=== PATIENT | male | born 1950 | race Caucasian/White ===

== ENCOUNTER 2018-06-29 08:58 | Emergency (ER) | payer MEDICARE, BC ==
[~2018-06-29] VITALS: Ht 190.5 cm; Wt 151.0 kg
[~2018-06-29 08:58] MED LIST: APIX5TAB3 PO; CARV-50 PO; FLEC50TA PO
[2018-06-29] MEDS ORDERED: furosemide 10 MG/1 ML 10ml inj IV ONE (10:05)
[2018-06-29 10:14] LABS: BASOPHILS % (AUTO) 0.1 % (0-1); EOSINOPHILS # (AUTO) 0.1 X10'3 (0-0.9); EOSINOPHILS % (AUTO) 0.8 % (0-6); LYMPHOCYTES # (AUTO) 0.8 X10'3 (1.1-4.8); LYMPHOCYTES % (AUTO) 6.9 % (21-51); MEAN CORPUSCULAR HEMOGLOBIN 30.4 PG (27.0-31.0); MEAN CORPUSCULAR HGB CONC 32.3 % (33.0-36.5); MEAN PLATELET VOLUME 9.3 FL (7.4-10.4); MONOCYTES # (AUTO) 0.6 X10'3 (0-0.9); MONOCYTES % (AUTO) 5.3 % (2-12); NEUTROPHILS # (AUTO) 9.8 X10'3 (1.8-7.7); NEUTROPHILS % (AUTO) 86.9 % (42-75); PLATELET COUNT 171 X10'3 (140-440); RED BLOOD COUNT 6.79 X10'6 (4.70-6.10); RED CELL DISTRIBUTION WIDTH 16.8 % (11.5-14.5); WHITE BLOOD COUNT 11.3 X10'3 (4.5-11.0)
[2018-06-29 10:22] LABS: HEMATOCRIT 63.9 % (42.0-52.0); HEMOGLOBIN 20.6 g/dl (14.0-17.9)
[2018-06-29 10:41] LABS: ALANINE AMINOTRANSFERASE 54 U/L (12-78); ALBUMIN 2.9 G/DL (3.4-5.0); ALBUMIN/GLOBULIN RATIO 0.8 (1.1-1.5); ALKALINE PHOSPHATASE 80 IU/L (46-116); ANION GAP 10 (8-16); ASPARTATE AMINO TRANSFERASE 24 U/L (10-37); BILIRUBIN,TOTAL 0.9 MG/DL (0.1-1.0); BLOOD UREA NITROGEN 23 MG/DL (7-18); BUN/CREATININE RATIO 12.4 (5.4-32.0); CALCIUM 8.7 MG/DL (8.5-10.1); CHLORIDE 107 MMOL/L (99-107); CREATININE 1.85 MG/DL (0.60-1.10); GLUCOSE 106 MG/DL (70-104); POTASSIUM 4.5 MMOL/L (3.5-5.1); SODIUM 141 MMOL/L (135-145); TOTAL CARBON DIOXIDE 23.7 MMOL/L (24-32); TOTAL PROTEIN 6.7 G/DL (6.4-8.2); eGFR 37 ML/MIN
[2018-06-29] MEDS ORDERED: FURO-150 PO (11:47)
[2018-06-29 11:58] VITALS: BP 178/101
== END 2018-06-29 12:01 | disposition home or self-care (01) ==
LOC: ER 08:59
DX: I11.0 Hypertensive heart disease with heart failure (principal); I50.33 Acute on chronic diastolic (congestive) heart failure; D75.1 Secondary polycythemia; I48.91 Unspecified atrial fibrillation; G89.29 Other chronic pain; I87.8 Other specified disorders of veins; Z90.49 Acquired absence of other specified parts of digestive tract; Z98.890 Other specified postprocedural states; Z79.01 Long term (current) use of anticoagulants; Z79.899 Other long term (current) drug therapy
CPT/HCPCS: 36415; 71046; 80053; 83605; 83880; 85025; 87040; 93005; 96374; 99285; J1940

== ENCOUNTER 2018-12-25 06:51 | Day surgery (SDC) | payer MEDICARE, BC ==
[2018-12-24 11:50] LABS: BASOPHILS % (AUTO) 0.5 % (0-1); EOSINOPHILS # (AUTO) 0.1 X10'3 (0-0.9); EOSINOPHILS % (AUTO) 1.4 % (0-6); HEMATOCRIT 48.9 % (42.0-52.0); HEMOGLOBIN 17.1 g/dl (14.0-17.9); LYMPHOCYTES # (AUTO) 1.4 X10'3 (1.1-4.8); LYMPHOCYTES % (AUTO) 18.1 % (21-51); MEAN CORPUSCULAR HEMOGLOBIN 33.5 PG (27.0-31.0); MEAN CORPUSCULAR VOLUME 95.8 FL (78-98); MEAN PLATELET VOLUME 9.1 FL (7.4-10.4); MONOCYTES # (AUTO) 0.7 X10'3 (0-0.9); MONOCYTES % (AUTO) 9.6 % (2-12); NEUTROPHILS # (AUTO) 5.4 X10'3 (1.8-7.7); NEUTROPHILS % (AUTO) 70.4 % (42-75); PLATELET COUNT 233 X10'3 (140-440); RED BLOOD COUNT 5.11 X10'6 (4.70-6.10); RED CELL DISTRIBUTION WIDTH 14.1 % (11.5-14.5); WHITE BLOOD COUNT 7.7 X10'3 (4.5-11.0)
[2018-12-24 11:54] LABS: ALBUMIN 3.3 G/DL (3.4-5.0); ANION GAP 8 (8-16); BLOOD UREA NITROGEN 25 MG/DL (7-18); BUN/CREATININE RATIO 15.5 (5.4-32.0); CALCIUM 9.1 MG/DL (8.5-10.1); CHLORIDE 108 MMOL/L (99-107); CREATININE 1.61 MG/DL (0.60-1.10); GLUCOSE 100 MG/DL (70-104); POTASSIUM 4.6 MMOL/L (3.5-5.1); SODIUM 140 MMOL/L (135-145); TOTAL CARBON DIOXIDE 24.5 MMOL/L (24-32); eGFR 43 ML/MIN
[~2018-12-25] VITALS: Ht 190.5 cm; Wt 152.3 kg
[2018-12-25] VITALS (7 sets, daily range): BP systolic 126–148; BP diastolic 75–101
[~2018-12-25 06:51] MED LIST changes: +FURO-150 PO
[2018-12-25] MEDS ORDERED: normal saline 1000ml 1,000 ML IV SCH (07:05)
[2018-12-25] MEDS ORDERED: morphine 10mg/ml inj. IV PRN (07:10)
[2018-12-25] MEDS ORDERED: MIDAZolam 1mg/ml 10ml vial IV PRN (07:15)
[2018-12-25] MEDS ORDERED: ATOR40TA PO (07:40)
== END 2018-12-25 12:45 | disposition home or self-care (01) ==
LOC: SSTAY O 06:51 → EDSTATUS 09:00 → SSTAY O 12:45
PROVIDERS: ATTEND Internal Medicine Cardiovascular Disease
DX: I08.0 Rheumatic disorders of both mitral and aortic valves (principal); I70.0 Atherosclerosis of aorta; I48.91 Unspecified atrial fibrillation; G47.33 Obstructive sleep apnea (adult) (pediatric); I12.9 Hypertensive chronic kidney disease with stage 1 through stage 4 chronic kidney disease, or unspecified chronic kidney disease; N18.9 Chronic kidney disease, unspecified; E66.01 Morbid (severe) obesity due to excess calories; Z86.73 Personal history of transient ischemic attack (TIA), and cerebral infarction without residual deficits; M19.90 Unspecified osteoarthritis, unspecified site; Z98.890 Other specified postprocedural states; Z90.5 Acquired absence of kidney; Z79.899 Other long term (current) drug therapy; I82.509 Chronic embolism and thrombosis of unspecified deep veins of unspecified lower extremity
CPT/HCPCS: 36415; 80048; 85025; 85610; 93312; J2250; J2270; 93325; J7030

== ENCOUNTER 2019-02-01 15:55 | Emergency (ER) | payer MEDICARE, BC ==
[~2019-02-01] VITALS: Ht 190.5 cm; Wt 140.9 kg
[~2019-02-01 15:55] MED LIST changes: +ATOR40TA PO; -FURO-150 PO
[2019-02-01 16:04] VITALS: BP 124/73
[2019-02-01] MEDS ORDERED: FLUT16SP2 BOTHNARES ×2 (17:37→17:42)
== END 2019-02-01 18:00 | disposition home or self-care (01) ==
LOC: ER 15:56
DX: J30.9 Allergic rhinitis, unspecified (principal); I11.0 Hypertensive heart disease with heart failure; I50.9 Heart failure, unspecified; I48.91 Unspecified atrial fibrillation; G89.29 Other chronic pain; Z90.49 Acquired absence of other specified parts of digestive tract
CPT/HCPCS: 99282

== ENCOUNTER 2020-03-18 10:50 | Outpatient (CLI) | payer MEDICARE, BC ==
[~2020-03-18] VITALS: Ht 190.5 cm; Wt 149.7 kg
[~2020-03-18 10:50] MED LIST changes: +FLUT16SP2 BOTHNARES
[2020-03-18 11:57] LABS: BASOPHILS # (AUTO) 0.1 X10'3 (0-0.2); BASOPHILS % (AUTO) 0.8 % (0-1); EOSINOPHILS # (AUTO) 0.1 X10'3 (0-0.9); EOSINOPHILS % (AUTO) 1.4 % (0-6); LYMPHOCYTES % (AUTO) 12.1 % (21-51); MEAN CORPUSCULAR HEMOGLOBIN 31.4 PG (27.0-31.0); MEAN CORPUSCULAR HGB CONC 33.6 g/dL (33.0-36.5); MEAN CORPUSCULAR VOLUME 93.4 FL (78-98); MEAN PLATELET VOLUME 9.1 FL (7.4-10.4); MONOCYTES # (AUTO) 0.6 X10'3 (0-0.9); MONOCYTES % (AUTO) 7.6 % (2-12); NEUTROPHILS # (AUTO) 6.6 X10'3 (1.8-7.7); NEUTROPHILS % (AUTO) 78.1 % (42-75); PRE OP HEMATOCRIT 50.2 % (42.0-52.0); PRE OP HEMOGLOBIN 16.9 g/dL (14.0-17.9); PRE OP PLATELET COUNT 224 X10'3 (140-440); RED BLOOD COUNT 5.37 X10'6 (4.70-6.10); RED CELL DISTRIBUTION WIDTH 14.6 % (11.5-14.5)
[2020-03-18 12:11] LABS: PRE OP PROTIME 10.2 SECONDS (9.0-12.0)
[2020-03-18 12:12] LABS: ALBUMIN 3.6 G/DL (3.4-5.0); ALBUMIN/GLOBULIN RATIO 0.9 (1.1-1.5); ALKALINE PHOSPHATASE 101 IU/L (46-116); BLOOD UREA NITROGEN 25 MG/DL (7-18); BUN/CREATININE RATIO 14.8 (5.4-32.0); CALCIUM 8.6 MG/DL (8.5-10.1); CHLORIDE 110 MMOL/L (99-107); CREATININE 1.69 MG/DL (0.60-1.10); PRE OP ALT 49 U/L (30-65); PRE OP ANION GAP 8 (8-16); PRE OP AST 25 U/L (10-37); PRE OP BILIRUB, TOTAL 0.4 MG/DL (0.0-1.0); PRE OP GLUCOSE 100 MG/DL (70-104); PRE OP SODIUM 140 MMOL/L (135-145); TOTAL CARBON DIOXIDE 22.5 MMOL/L (24-32); TOTAL PROTEIN 7.5 G/DL (6.4-8.2); eGFR 41 ML/MIN
[2020-03-18 12:13] LABS: PRE OP POTASSIUM 4.7 MMOL/L (3.4-5.1)
[2020-03-18 13:46] LABS: PLATELET FUNCTION (ADP) 227 SECONDS (63-104)
[2020-03-22 17:42] LABS: PLATELET FUNCTION (ADP) 226 SECONDS (63-104)
[2020-03-23] MEDS ORDERED: ringers solution, lacted 1,000 ML IV SCH (05:00)
[2020-03-23] MEDS ORDERED: oxymetazoline 15 ML nasal spray NS PRN (05:30)
[2020-03-23] MEDS ORDERED: DOCUMENT DATE & TIME OF BETA-BLOCKER PO ONE (05:30)
[2020-03-23] MEDS ORDERED: famotidine 20mg tablet PO ONE (05:30)
[2020-03-23] MEDS ORDERED: methylPREDNISolone acetate 80mg/ml inj**IM only ONE (06:57)
[2020-03-23] MEDS ORDERED: cocaine 4% topical solution 4ml bottle ONE (06:57)
[2020-03-23] MEDS ORDERED: mupirocin 2% ointment 22GM ONE (06:57)
[2020-03-23] MEDS ORDERED: LIDOcaine 1% W/epiNEPHrine 1:100,000 20ml vial ONE (06:57)
[2020-03-23] MEDS ORDERED: oxymetazoline 15 ML nasal spray NS ONE (06:58)
[2020-03-23] MEDS ORDERED: BUPIVAcaine 0.5% W/EPI /PF 30ml vial ONE (06:58)
[2020-03-23] MEDS ORDERED: cefTAZidime 1gm inj ONE (06:58)
== END 2020-03-18 23:59 | disposition home or self-care (01) ==
LOC: PRE-OP 10:50 → EDSTATUS 03-23 08:00
PROVIDERS: ATTEND Otolaryngology
DX: Z01.818 Encounter for other preprocedural examination (principal); Z11.59 Encounter for screening for other viral diseases; J32.0 Chronic maxillary sinusitis; J34.2 Deviated nasal septum; I48.91 Unspecified atrial fibrillation
CPT/HCPCS: 36415; 80053; 85025; 85576; 85610; 85730; C9803; U0003; J7120

== ENCOUNTER 2020-12-07 08:16 | Day surgery (SDC) | payer MEDICARE, BC ==
[2020-11-30 11:23] LABS: BASOPHILS # (AUTO) 0.1 X10'3 (0-0.2); BASOPHILS % (AUTO) 0.8 % (0-1); EOSINOPHILS # (AUTO) 0.2 X10'3 (0-0.9); EOSINOPHILS % (AUTO) 3.7 % (0-6); LYMPHOCYTES % (AUTO) 15.8 % (21-51); MEAN CORPUSCULAR HEMOGLOBIN 31.4 PG (27.0-31.0); MEAN CORPUSCULAR HGB CONC 34.3 g/dL (33.0-36.5); MEAN CORPUSCULAR VOLUME 91.5 FL (78-98); MEAN PLATELET VOLUME 8.7 FL (7.4-10.4); MONOCYTES # (AUTO) 0.6 X10'3 (0-0.9); MONOCYTES % (AUTO) 8.9 % (2-12); NEUTROPHILS # (AUTO) 4.4 X10'3 (1.8-7.7); NEUTROPHILS % (AUTO) 70.8 % (42-75); PRE OP HEMATOCRIT 48.8 % (42.0-52.0); PRE OP HEMOGLOBIN 16.7 g/dL (14.0-17.9); PRE OP PLATELET COUNT 220 X10'3 (140-440); RED BLOOD COUNT 5.33 X10'6 (4.70-6.10); RED CELL DISTRIBUTION WIDTH 14.9 % (11.5-14.5)
[2020-11-30 11:32] LABS: PRE OP PROTIME 10.1 SECONDS (9.0-12.0)
[2020-11-30 11:45] LABS: ALKALINE PHOSPHATASE 93 IU/L (46-116); BLOOD UREA NITROGEN 16 MG/DL (7-18); BUN/CREATININE RATIO 12.3 (5.4-32.0); CALCIUM 9.1 MG/DL (8.5-10.1); CHLORIDE 109 MMOL/L (99-107); PRE OP ALT 40 U/L (30-65); PRE OP ANION GAP 9 (8-16); PRE OP AST 20 U/L (10-37); PRE OP BILIRUB, TOTAL 0.4 MG/DL (0.0-1.0); PRE OP GLUCOSE 111 MG/DL (70-104); PRE OP POTASSIUM 4.4 MMOL/L (3.4-5.1); PRE OP SODIUM 142 MMOL/L (135-145); TOTAL CARBON DIOXIDE 24.1 MMOL/L (24-32); TOTAL PROTEIN 7.3 G/DL (6.4-8.2); eGFR 55 ML/MIN
[2020-11-30 12:02] LABS: ALBUMIN 3.4 G/DL (3.4-5.0); ALBUMIN/GLOBULIN RATIO 0.9 (1.1-1.5)
[~2020-12-07] VITALS: Ht 190.5 cm; Wt 152.8 kg
[~2020-12-07 08:16] MED LIST changes: -ATOR40TA PO; +DOCUMENT DATE & TIME OF BETA-BLOCKER PO ONE; -FLEC50TA PO; -FLUT16SP2 BOTHNARES; +LIDOcaine 1% W/epiNEPHrine 1:100,000 20ml vial ONE; +LIDOcaine 1% W/epiNEPHrine 1:200,000 10ml vial ONE; +cefTAZidime 1gm inj ONE; +cocaine 4% topical solution 4ml bottle ONE; +famotidine 20mg tablet PO ONE; +mupirocin 2% ointment 22GM ONE; +oxymetazoline 15 ML nasal spray NS ONE; +oxymetazoline 15 ML nasal spray NS PRN; +ringers solution, lacted 1,000 ML IV SCH
[2020-12-07 08:30] VITALS: BP_SYST 174; BP_DIAS 105; BP_DIAS 113
--- NOTE | 2020-12-07 09:15 | NUR ---
BP ELEVATED. NOTIFIED DR. ALCARAZ WHOM I HEARD RELAY MSG TO DR. MITTAL. BOTH ARE OK TO GO AHEAD WITH SURGERY Addendum: 12/07/20 at 1017 by Dayana Blum RN Amended: Links added.
[2020-12-07 09:49] LABS: PARTIAL THROMBOPLASTIN TIME 30 SECONDS (22-32)
--- NOTE | 2020-12-07 10:50 | NUR ---
REPEAT BP PRIOR TO GOING INTO THE OR = 188/97. DR MITTAL AT BEDSIDE SX CX DUE TO HTN AND HIGH RISK FOR BLEEDING POST-OP. DR. TORRES WANTS PT TO GO TO THE ED FOR EVALUATION OF BP, PT AGREEABLE. SPOKE WITH ED CHARGE NURSE REPORT GIVEN. DUE LACK OF BED AVAILABILITY IN THE ED AT THIS MOMENT PT TAKEN TO ED LOBBY AND CHECKED IN FOR TRIAGE. PT NOTIFYING HIS OF PLAN. OR NOTIFIED OF CX. Addendum: 12/07/20 at 1105 by Dayana Blum RN 20G IV TO RT HAND LEFT IN PLACE FOR USE IN THE ED
== END 2020-12-07 10:50 | disposition short-term general hospital (02) ==
LOC: PAS 08:16
PROVIDERS: ATTEND Otolaryngology
DX: J34.2 Deviated nasal septum (principal); Z53.8 Procedure and treatment not carried out for other reasons; I10 Essential (primary) hypertension; J34.3 Hypertrophy of nasal turbinates; J34.89 Other specified disorders of nose and nasal sinuses; Z20.822 Contact with and (suspected) exposure to COVID-19; Z79.899 Other long term (current) drug therapy; Z79.01 Long term (current) use of anticoagulants
CPT/HCPCS: 36415; 80053; 82948; 85025; 85576; 85610; 85730; 87426; J0713; U0003; J7120

== ENCOUNTER 2020-12-07 10:52 | Emergency (ER) | payer MEDICARE, BC ==
[~2020-12-07] VITALS: Ht 190.5 cm; Wt 154.0 kg
[~2020-12-07 10:52] MED LIST changes: -DOCUMENT DATE & TIME OF BETA-BLOCKER PO ONE; -LIDOcaine 1% W/epiNEPHrine 1:100,000 20ml vial ONE; -LIDOcaine 1% W/epiNEPHrine 1:200,000 10ml vial ONE; -cefTAZidime 1gm inj ONE; -cocaine 4% topical solution 4ml bottle ONE; -famotidine 20mg tablet PO ONE; -mupirocin 2% ointment 22GM ONE; -oxymetazoline 15 ML nasal spray NS ONE; -oxymetazoline 15 ML nasal spray NS PRN; -ringers solution, lacted 1,000 ML IV SCH
[2020-12-07 12:00] LABS: BASOPHILS # (AUTO) 0.1 X10'3 (0-0.2); EOSINOPHILS # (AUTO) 0.2 X10'3 (0-0.9); EOSINOPHILS % (AUTO) 2.9 % (0-6); HEMATOCRIT 48.6 % (42.0-52.0); HEMOGLOBIN 16.3 g/dl (14.0-17.9); LYMPHOCYTES # (AUTO) 1.1 X10'3 (1.1-4.8); LYMPHOCYTES % (AUTO) 18.4 % (21-51); MEAN CORPUSCULAR HEMOGLOBIN 31.2 PG (27.0-31.0); MEAN CORPUSCULAR HGB CONC 33.7 g/dL (33.0-36.5); MEAN CORPUSCULAR VOLUME 92.7 FL (78-98); MEAN PLATELET VOLUME 8.1 FL (7.4-10.4); MONOCYTES # (AUTO) 0.5 X10'3 (0-0.9); MONOCYTES % (AUTO) 9.2 % (2-12); NEUTROPHILS # (AUTO) 4.1 X10'3 (1.8-7.7); NEUTROPHILS % (AUTO) 68.5 % (42-75); PLATELET COUNT 238 X10'3 (140-440); RED BLOOD COUNT 5.24 X10'6 (4.70-6.10); RED CELL DISTRIBUTION WIDTH 14.9 % (11.5-14.5)
[2020-12-07 12:15] LABS: ALANINE AMINOTRANSFERASE 42 U/L (12-78); ALBUMIN 3.3 G/DL (3.4-5.0); ALBUMIN/GLOBULIN RATIO 0.9 (1.1-1.5); ALKALINE PHOSPHATASE 84 IU/L (46-116); ANION GAP 12 (8-16); ASPARTATE AMINO TRANSFERASE 25 U/L (10-37); BILIRUBIN,TOTAL 0.5 MG/DL (0.1-1.0); BLOOD UREA NITROGEN 19 MG/DL (7-18); BUN/CREATININE RATIO 13.8 (5.4-32.0); CALCIUM 8.9 MG/DL (8.5-10.1); CHLORIDE 106 MMOL/L (99-107); CREATININE 1.38 MG/DL (0.60-1.10); GLUCOSE 111 MG/DL (70-104); POTASSIUM 4.4 MMOL/L (3.5-5.1); SODIUM 141 MMOL/L (135-145); TOTAL CARBON DIOXIDE 23.5 MMOL/L (24-32); TOTAL PROTEIN 7.1 G/DL (6.4-8.2); eGFR 51 ML/MIN
[2020-12-07 12:21] LABS: MAGNESIUM 1.9 MG/DL (1.5-2.4)
[2020-12-07] MEDS ORDERED: morphine 4 MG/ML inj SYRINge IV ONE (12:40)
[2020-12-07] MEDS ORDERED: ondansetron/PF 4mg/2ml inj IV ONE (12:40)
[2020-12-07] MEDS ORDERED: hydrALAZINE 20mg/ml inj. IV ONE (12:40)
[2020-12-07 13:49] VITALS: BP 150/86
== END 2020-12-07 14:16 | disposition home or self-care (01) ==
LOC: ER 10:53
DX: I13.0 Hypertensive heart and chronic kidney disease with heart failure and stage 1 through stage 4 chronic kidney disease, or unspecified chronic kidney disease (principal); Z20.822 Contact with and (suspected) exposure to COVID-19; N18.9 Chronic kidney disease, unspecified; M25.552 Pain in left hip; I48.91 Unspecified atrial fibrillation; G89.29 Other chronic pain; Z90.89 Acquired absence of other organs; Z98.890 Other specified postprocedural states; Z90.49 Acquired absence of other specified parts of digestive tract; Z91.040 Latex allergy status; Z79.899 Other long term (current) drug therapy
CPT/HCPCS: 36415; 71045; 80053; 82948; 83735; 83880; 84484; 85025; 85610; 85730; 87426; 93005; 96374; 99285; J0360; J0713; J7120

== ENCOUNTER 2022-02-07 06:15 | Day surgery (SDC) | payer MEDICARE, BC ==
[2022-02-07] VITALS (12 sets, daily range): BP systolic 105–146; BP diastolic 57–91
[~2022-02-07] VITALS: Ht 188 cm; Wt 147.2 kg
[2022-02-07] MEDS ORDERED: morphine 10mg/ml inj. IV ONE (06:40)
[2022-02-07] MEDS ORDERED: amiodarone 150mg/dext, iso-os 100 ML IV ONE (06:40)
[2022-02-07] MEDS ORDERED: atropine 0.1mg/ml 10ml syringe IV ONE (06:40)
[2022-02-07] MEDS ORDERED: normal saline 1000ml 1,000 ML IV SCH (06:40)
[2022-02-07] MEDS ORDERED: LORazepam 0.5 MG tablet PO ONE (06:40)
[2022-02-07] MEDS ORDERED: MIDAZolam 1mg/ml 10ml vial IV ONE (06:40)
[2022-02-07] MEDS ORDERED: diphenhydrAMINE 25mg capsule PO ONE (06:40)
[2022-02-07 07:11] LABS: BASOPHILS # (AUTO) 0.1 X10'3 (0-0.2); BASOPHILS % (AUTO) 0.7 % (0-1); EOSINOPHILS # (AUTO) 0.2 X10'3 (0-0.9); EOSINOPHILS % (AUTO) 3.5 % (0-6); HEMATOCRIT 45.6 % (42.0-52.0); HEMOGLOBIN 15.1 g/dl (14.0-17.9); LYMPHOCYTES % (AUTO) 13.9 % (21-51); MEAN CORPUSCULAR HEMOGLOBIN 30.2 PG (27.0-31.0); MEAN CORPUSCULAR HGB CONC 33.2 g/dL (33.0-36.5); MEAN CORPUSCULAR VOLUME 91.1 FL (78-98); MONOCYTES # (AUTO) 0.6 X10'3 (0-0.9); MONOCYTES % (AUTO) 8.1 % (2-12); NEUTROPHILS # (AUTO) 5.2 X10'3 (1.8-7.7); NEUTROPHILS % (AUTO) 73.8 % (42-75); PLATELET COUNT 237 X10'3 (140-440); RED BLOOD COUNT 5.01 X10'6 (4.70-6.10); RED CELL DISTRIBUTION WIDTH 15.4 % (11.5-14.5)
[2022-02-07] MEDS ORDERED: FLEC100T35 (07:13)
[2022-02-07] MEDS ORDERED: LISI10TA27 (07:13)
[2022-02-07] MEDS ORDERED: ROSU10TA28 (07:13)
[2022-02-07 07:14] LABS: ALBUMIN 3.2 G/DL (3.4-5.0); ANION GAP 9 (8-16); BLOOD UREA NITROGEN 24 MG/DL (7-18); BUN/CREATININE RATIO 14.5 (5.4-32.0); CALCIUM 8.6 MG/DL (8.5-10.1); CHLORIDE 112 MMOL/L (99-107); CREATININE 1.65 MG/DL (0.60-1.10); GLUCOSE 117 MG/DL (70-104); POTASSIUM 4.3 MMOL/L (3.5-5.1); SODIUM 142 MMOL/L (135-145); TOTAL CARBON DIOXIDE 20.9 MMOL/L (24-32); eGFR 42 ML/MIN
[2022-02-07] MEDS ORDERED: FURO40TA4 PO (07:16)
== END 2022-02-07 11:25 | disposition home or self-care (01) ==
LOC: SSTAY O 06:15
PROVIDERS: ATTEND Internal Medicine Cardiovascular Disease
DX: I48.0 Paroxysmal atrial fibrillation (principal); I11.0 Hypertensive heart disease with heart failure; I50.30 Unspecified diastolic (congestive) heart failure; I48.92 Unspecified atrial flutter; E78.49 Other hyperlipidemia; G47.33 Obstructive sleep apnea (adult) (pediatric); E66.3 Overweight; Z68.41 Body mass index [BMI] 40.0-44.9, adult; Z86.73 Personal history of transient ischemic attack (TIA), and cerebral infarction without residual deficits; Z90.49 Acquired absence of other specified parts of digestive tract; Z98.890 Other specified postprocedural states; Z72.89 Other problems related to lifestyle; Z79.899 Other long term (current) drug therapy
CPT/HCPCS: 36415; 80048; 85025; 92960; 93005; 94799